=== PATIENT | female | born 2000 | race Caucasian/White ===

== ENCOUNTER → 2022-06-04 | Outpatient (REF) | payer OTHER ==
[2022-06-04 14:59] LABS: HCG, SERUM QUALITATIVE POSITIVE (NEGATIVE)
[2022-06-04 18:15] LABS: HCG, SERUM QUANTITATIVE 50450.1 MIU/ML (<4.2)
== END ==
LOC: M LABDRWAD 12:56
PROVIDERS: ATTEND Obstetrics & Gynecology
DX: N91.2 Amenorrhea, unspecified (principal)

== ENCOUNTER → 2024-02-10 | Outpatient (CLI) | payer OTHER | LOC: M RAD 12:28 | PROVIDERS: ATTEND Midwife | DX: Z34.81 Encounter for supervision of other normal pregnancy, first trimester (principal) ==

== ENCOUNTER → 2024-07-05 | Outpatient (CLI) | payer OTHER ==
[2024-07-05 11:07] LABS: HEMATOCRIT 37.8 % (36.0-47.0); HEMOGLOBIN 12.6 g/dl (12.0-15.5); MEAN CORPUSCULAR HGB CONC 33.3 g/dl (32.0-36.5); MEAN CORPUSCULAR VOLUME 95.9 fl (80.0-96.0); PLATELET COUNT, AUTOMATED 231 10^3/uL (150-450); RED BLOOD COUNT 3.94 10^6/uL (4.00-5.40); WHITE BLOOD COUNT 9.6 10^3/uL (4.0-10.0)
== END ==
LOC: M LAB 10:20
PROVIDERS: ATTEND Midwife
DX: Z34.80 Encounter for supervision of other normal pregnancy, unspecified trimester (principal)